=== PATIENT | female | born 1955 | race Caucasian/White ===

== ENCOUNTER → 2019-12-28 11:00 | Outpatient (BNVA) | payer OTHER, SELFPAY | PROVIDERS: Family Provider Nurse Practitioner; PCP Nurse Practitioner; Visit Provider Nurse Practitioner | DX: M25.50 Pain in unspecified joint (principal); Z11.59 Encounter for screening for other viral diseases; Z71.89 Other specified counseling | CPT/HCPCS: 87635 ==

== ENCOUNTER → 2020-01-08 09:52 | Outpatient (BNVA) | payer OTHER, SELFPAY | PROVIDERS: Family Provider Nurse Practitioner; PCP Nurse Practitioner; Visit Provider Nurse Practitioner | DX: Z00.00 Encounter for general adult medical examination without abnormal findings (principal); E55.9 Vitamin D deficiency, unspecified; M25.571 Pain in right ankle and joints of right foot | CPT/HCPCS: 73610; 80053; 80061; 81000; 82306; 82607; 83735; 84443; 85025; 85651 ==

== ENCOUNTER 2020-01-11 12:57 | Outpatient (CLI) | payer OTHER, SELFPAY ==
--- NOTE | 2020-01-12 06:58 | ONC FU_ITS ---
Dr. Crowe Patient Follow-Up Note Patient: Isabel Baird Unit #: [id number]: 1955 Dicatated By: Dajuan Crowe M.D.Date of Visit:Jan 11, 2020 Onc Med Follow-up/Prog Note Chief Complaint: Breast cancer. History of Present Illness: This is a 64 year-old woman with grade 3 invasive ductal carcinoma of the right breast, stage IIA (T2, N0, M0), ER/LA negative and HER-2/dallin positive. She had presented with an abnormal screening mammogram. The initial study, from 09/18/2016 was BI-RADS Category 0. It showed new scattered calcifications in the anterior right breast posterior to the nipple extending into the mid depth. Diagnostic mammogram with additional views on 09/26/2016 showed increase in size and number of calcifications compared to the prior study from 08/22/2015. The findings were felt to be suspicious enough to warrant biopsy, BI-RADS 4B. She then had further evaluation at the breast center in [place] with unilateral right mammogram and ultrasound on 10/11/2016. The mammogram showed numerous fine pleomorphic and some linear branching calcifications throughout the upper central right breast spanning an area of approximately 5.0 cm. These were noted to extend to the subareolar region. Ultrasound showed an irregular mass within the 12:00 axis of the right breast 3 cm from the nipple. It measured 1.4 x 0.9 x 0.7 cm. An adjacent irregular mass 2 cm from the nipple measured 0.8 x 0.6 x 0.5 cm. A third mass was present within the 1:00 axis of the right breast 2 cm from the nipple measuring 0.7 x 0.5 x 0.5 cm. She underwent ultrasound-guided biopsy of the 12:00 mass 3 cm from the nipple and of the 3:00 subareolar mass. Pathology on both lesions was consistent with grade 3 infiltrating ductal carcinoma. The breast prognostic profile on the 12:00 lesion showed ER negative at 0% and LA negative at 0%. HER-2/dallin was equivocal by IHC (2+). It was positive for overexpression of HER-2/dallin by FISH, amplification ratio 2.43 with 4.9 HER-2/dallin copies/cell. The Ki-67 was unfavorable at 53%. The 3:00 lesion was ER/LA negative, both 0%. HER-2/dallin was 2+ by IHC. It was reported negative by FISH with amplification ratio 1.19 and 3.6 HER-2/dallin copies/cell. The Ki-67 was unfavorable at 88%. She underwent right axillary sentinel lymph node biopsy on 11/01/2016. There was no involvement in 2 lymph nodes. She began neoadjuvant chemotherapy with TCH-P, cycle 1 day 1 on 11/14/2016. She tolerated her treatment without acute toxicity. However, she subsequently developed pretty severe bronchitis at about day 4. She was treated with inhaled bronchodilators and an antibiotic. At day 8 she became neutropenic, ANC 500. She recovered uneventfully with Neupogen. Her bronchitis eventually resolved. With cycle 2 she did receive Neulasta prophylactically, but it was omitted with the 3rd cycle because of leukocytosis. She then became neutropenic again, and she required treatment with Neupogen. She recovered uneventfully. After cycle 4, her chemotherapy was held due to severe diarrhea and worsening neuropathy. She was having lots of numbness and tingling in her hands and feet to the point that she was dropping things and she felt unsteady when she walked. She had residual tingling in her hands and feet after being held an extra week, but the pain and unsteadiness had essentially resolved. She completed cycle 5 with Herceptin and Perjeta only on 02/13/2017 and she completed cycle 6 on 03/06/2017. On 03/19/2017 she underwent bilateral mastectomy/reconstruction. Pathology showed focal involvement with nuclear grade 3 ductal carcinoma in situ in the superior half of the right breast. There was no invasive cancer identified. There were proliferative fibrocystic changes in both breasts. She then continued her treatment with Herceptin only at 3-week intervals with cycle 1 on 03/27/2017. She received cycle 11 of single agent Herceptin on 10/24/2017. At that point she had completed a full year of treatment, and she was then followed on observation/expectant management. Her other medical illnesses have been limited to mild asthma and hypothyroidism. She had previous left breast biopsies for benign disease in the 1970s and sometime in the . Her other previous surgeries include appendectomy in 1971 and hysterectomy/bilateral salpingo-oophorectomy. She is a nonsmoker. INTERIM HISTORY: She is seen for a scheduled visit. She has been feeling pretty good generally. Her main complaint is that her arthritis has flared up at multiple sites, including the ankles, hips, and hands, among others. She basically hurts all over. The pain is significant enough that she has trouble pushing herself up. She is taking meloxicam. Her energy is otherwise pretty good. Her ECOG score is 1. She has good appetite. She has no fever or night sweats. She has no shortness of breath, cough, or chest pain. She has no GI complaints other than occasional heartburn. Bladder function remains adequate. She does not complain of headache or dizziness. Her neuropathy symptoms have improved. She now has just occasional numbness in her feet. Medications: Albuterol Sulfate 1 Nebulization solution Inhalation four times a day PRN, Flonase Allergy Relief 2 spray(s) (of 50 mcg/act) Suspension Nasal daily, Levothroid 1 (137 mcg) Tablet Oral daily, Magnesium 1 Tablet (of 250 mg) Oral daily, Mucinex Allergy 1 (180 mg) Tablet Oral q 4 hours PRN, Singulair 1 (10 mg) Tablet Oral daily Allergies: Codeine Sulfate and Tetanus Immune Globulin. Review of Systems: Constitutional - Her energy is pretty good, but she does have limited activity. Appetite is good and weight is stable. No fever, night sweats, or hot flashes. ECOG score is 1, ENMT - No sinus congestion/drainage. No mouth sores. No sore throat or difficulty swallowing, Hematologic/Lymphatic - No abnormal bruising or bleeding, Respiratory - No shortness of breath. No cough. No pleuritic pain or hemoptysis, Cardiovascular - No angina pain. No palpitations, Gastrointestinal - No nausea or vomiting. She occasioanlly has heartburn. No diarrhea or constipation. No blood in the stool or black stools, Genitourinary (F) - No dysuria or hematuria. No urinary frequency. No urgency or incontinence, Musculoskeletal - She is having fairly generalized joint pain including the hands, hips, and ankles. She says she hurts all over. She has some weakness, and she has difficulty pushing up, Integumentary - No skin rash, Neurologic - No headache or dizziness. She has just occasional numbness/tingling in her feet. No other focal neurologic symptoms, Psychiatric - No anxiety or depression. No insomnia. Vital Signs: Performed on Jan 11, 2020 13:32 Height - 66.00 in Weight - 177.4 lbs (HIGH) BSA - 1.90 sq.m BMI - 28.63 Temperature - 97.8 F (LOW) Pulse - 74 /min Respiration - 16 /min BP - 127/77 mm(hg) O2 Sat - 100 % Pain - 1 Physical Examination: Constitutional - She looks good generally, Eyes - Sclerae nonicteric. Conjunctivae clear, ENMT - No lesions noted in the oral cavity, Hematologic/Lymphatic - No cervical or clavicular adenopathy, Respiratory - Lungs are clear with good air movement bilaterally, Cardiovascular - Heart rhythm is regular. There is no murmur, gallop, or rub noted, Breasts - There are no lesions noted in the chest wall/reconstruction bilaterally. There is no axillary adenopathy, Abdomen - Soft. Liver and spleen are not enlarged. There is no abdominal mass or ascites noted and there is no inguinal adenopathy, Extremities - No edema, Neurologic - No focal neurologic deficits noted. Lab/Imaging: CBC shows hemoglobin 12.6 g, white blood cell count 7500, and platelet count 285,000. Sed rate is mildly elevated at 35 mm/hour. Comprehensive metabolic profile is unremarkable. The alkaline phosphatase and other liver enzymes are normal. The 25-hydroxy vitamin D level is just slightly low at 29 ng/mL. TSH is normal at 1.17 ???IU/mL. Impression: 1. Patient with grade 3 infiltrating ductal carcinoma of the right breast, ER/LA negative and HER-2/dallin positive. There was uncertainty as to where this was multifocal disease versus more diffuse involvement with a larger primary lesion. The latter would appeared to be more likely, which would make her disease stage IIA (T2, N0, M0). 2. She underwent ultrasound-guided needle biopsy of 2 lesions in the right breast on 10/11/2016. She underwent right axillary sentinel lymph node biopsy on 11/01/2016. 3. She began neoadjuvant chemotherapy with TCH-P, cycle 1 day 1 on 11/14/2016. Her chemotherapy has been complicated by neutropenia, fatigue, diarrhea, and neuropathy. The neuropathy, in particular, had worsened significantly following the 4th cycle of treatment. With cycles 5 & 6 the carboplatin and Taxotere were omitted, and the treatment was limited to Herceptin and Perjeta alone. Treatment was completed on 03/06/2017. Her other medical illnesses include: 4. Mild asthma. 5. Hypothyroidism. On 03/19/2017 she underwent bilateral mastectomy/reconstruction by Drs. Healy and Siva in [place]. Pathology showed just focal residual ductal carcinoma in situ involving the superior half of the right breast. There was no residual invasive cancer identified. She then continued systemic therapy with Herceptin alone at 3-week intervals with cycle 1 on 03/27/2017. She received her 11th cycle of treatment with Herceptin on 10/24/2017. At that point she had completed a full year of treatment, and she was then followed on observation/expectant management. During subsequent follow-up she has been doing pretty well, though recently she has developed pretty significant joint pain. The presentation appears consistent with osteoarthritis. At this point it is really not suspicious for metastatic disease. She otherwise appears stable clinically. Plan: She continues on observation/expectant management for the breast cancer. She has regular follow-up scheduled with Dr. Healy in [place]. I will see her again in one year, or sooner as needed. Signed By: Dajuan Crowe M.D. <<Signature on File>>
== END 2020-01-11 12:58 | disposition home or self-care (01) ==
LOC: ONCMED 13:01
PROVIDERS: PCP Nurse Practitioner; Visit Provider Internal Medicine Medical Oncology
DX: Z08 Encounter for follow-up examination after completed treatment for malignant neoplasm (principal); Z85.3 Personal history of malignant neoplasm of breast; M25.50 Pain in unspecified joint; J45.909 Unspecified asthma, uncomplicated; E03.9 Hypothyroidism, unspecified; Z90.13 Acquired absence of bilateral breasts and nipples; Z92.21 Personal history of antineoplastic chemotherapy
CPT/HCPCS: G0463

== ENCOUNTER → 2020-12-26 13:52 | Outpatient (BNVA) | payer MEDICARE, BC, SELFPAY | PROVIDERS: PCP Nurse Practitioner; Visit Provider Nurse Practitioner | DX: E55.9 Vitamin D deficiency, unspecified (principal); Z11.59 Encounter for screening for other viral diseases; Z13.6 Encounter for screening for cardiovascular disorders; E03.9 Hypothyroidism, unspecified; Z78.0 Asymptomatic menopausal state; Z23 Encounter for immunization | CPT/HCPCS: 80053; 80061; 82306; 84443; 85025; 86803 ==

== ENCOUNTER 2021-01-11 08:53 | Outpatient (CLI) | payer MEDICARE, BC, SELFPAY ==
--- NOTE | 2021-01-11 10:17 | ONC FU_ITS ---
Dr. Crowe Patient Follow-Up Note Patient: Isabel Baird Unit #: [id number]: 1955 Dicatated By: Dajuan Crowe M.D.Date of Visit:Jan 11, 2021 Onc Med Follow-up/Prog Note Chief Complaint: Breast cancer. History of Present Illness: This is a 65 year-old woman with grade 3 invasive ductal carcinoma of the right breast, stage IIA (T2, N0, M0), ER/HI negative and HER-2/dallin positive. She had presented with an abnormal screening mammogram. The initial study, from 09/18/2016 was BI-RADS Category 0. It showed new scattered calcifications in the anterior right breast posterior to the nipple extending into the mid depth. Diagnostic mammogram with additional views on 09/26/2016 showed increase in size and number of calcifications compared to the prior study from 08/22/2015. The findings were felt to be suspicious enough to warrant biopsy, BI-RADS 4B. She then had further evaluation at the breast center in [place] with unilateral right mammogram and ultrasound on 10/11/2016. The mammogram showed numerous fine pleomorphic and some linear branching calcifications throughout the upper central right breast spanning an area of approximately 5.0 cm. These were noted to extend to the subareolar region. Ultrasound showed an irregular mass within the 12:00 axis of the right breast 3 cm from the nipple. It measured 1.4 x 0.9 x 0.7 cm. An adjacent irregular mass 2 cm from the nipple measured 0.8 x 0.6 x 0.5 cm. A third mass was present within the 1:00 axis of the right breast 2 cm from the nipple measuring 0.7 x 0.5 x 0.5 cm. She underwent ultrasound-guided biopsy of the 12:00 mass 3 cm from the nipple and of the 3:00 subareolar mass. Pathology on both lesions was consistent with grade 3 infiltrating ductal carcinoma. The breast prognostic profile on the 12:00 lesion showed ER negative at 0% and HI negative at 0%. HER-2/dallin was equivocal by IHC (2+). It was positive for overexpression of HER-2/dallin by FISH, amplification ratio 2.43 with 4.9 HER-2/dallin copies/cell. The Ki-67 was unfavorable at 53%. The 3:00 lesion was ER/HI negative, both 0%. HER-2/dallin was 2+ by IHC. It was reported negative by FISH with amplification ratio 1.19 and 3.6 HER-2/dallin copies/cell. The Ki-67 was unfavorable at 88%. She underwent right axillary sentinel lymph node biopsy on 11/01/2016. There was no involvement in 2 lymph nodes. She began neoadjuvant chemotherapy with TCH-P, cycle 1 day 1 on 11/14/2016. She tolerated her treatment without acute toxicity. However, she subsequently developed pretty severe bronchitis at about day 4. She was treated with inhaled bronchodilators and an antibiotic. At day 8 she became neutropenic, ANC 500. She recovered uneventfully with Neupogen. Her bronchitis eventually resolved. With cycle 2 she did receive Neulasta prophylactically, but it was omitted with the 3rd cycle because of leukocytosis. She then became neutropenic again, and she required treatment with Neupogen. She recovered uneventfully. After cycle 4, her chemotherapy was held due to severe diarrhea and worsening neuropathy. She was having lots of numbness and tingling in her hands and feet to the point that she was dropping things and she felt unsteady when she walked. She had residual tingling in her hands and feet after being held an extra week, but the pain and unsteadiness had essentially resolved. She completed cycle 5 with Herceptin and Perjeta only on 02/13/2017 and she completed cycle 6 on 03/06/2017. On 03/19/2017 she underwent bilateral mastectomy/reconstruction. Pathology showed focal involvement with nuclear grade 3 ductal carcinoma in situ in the superior half of the right breast. There was no invasive cancer identified. There were proliferative fibrocystic changes in both breasts. She then continued her treatment with Herceptin monotherapy at 3-week intervals with cycle 1 on 03/27/2017. She received cycle 11 of single agent Herceptin on 10/24/2017. At that point she had completed a full year of treatment, and she was then followed on observation/expectant management. Her other medical illnesses have been limited to mild asthma, hypothyroidism, and hyperlipidemia. She had previous left breast biopsies for benign disease in the 1970s and sometime in the . Her other previous surgeries include appendectomy in 1971 and hysterectomy/bilateral salpingo-oophorectomy. She is a nonsmoker. She is seen for a scheduled visit. She has been feeling good generally. She has good energy and activity tolerance. ECOG score is 0. Her appetite is good. She has not had fever. She has just occasional hot flashes/sweating. She has no shortness of breath, cough, or chest pain. She has some acid reflux off and on, managed adequately with [id number] medication taken as needed. She has no other GI or complaints. She has joint pain, mainly in the hips and shoulders. She is managing with combination of meloxicam and chondroitin sulfate/glucosamine. She does not complain of headache or dizziness. She still has some residual neuropathy in her feet. Medications: Albuterol Sulfate 1 Nebulization solution Inhalation four times a day PRN, Flonase Allergy Relief 2 spray(s) (of 50 mcg/act) Suspension Nasal daily, Levothroid 1 (137 mcg) Tablet Oral daily, Magnesium 1 Tablet (of 250 mg) Oral daily, Mucinex Allergy 1 (180 mg) Tablet Oral q 4 hours PRN, Singulair 1 (10 mg) Tablet Oral daily Allergies: Codeine Sulfate and Tetanus Immune Globulin. Vital Signs: Her weight is 173 pounds. Blood pressure 146/88, pulse 67, respirations 18, temp 99.0 degrees. Oxygen saturation is 98%. Physical Examination: Constitutional - She looks good generally, Eyes - Sclerae nonicteric. Conjunctivae clear, ENMT - No lesions noted in the oral cavity, Hematologic/Lymphatic - No cervical or clavicular adenopathy, Respiratory - Lungs are clear with good air movement bilaterally, Cardiovascular - Heart rhythm is regular. There is no murmur, gallop, or rub noted, Breasts - There are no lesions noted in the chest wall/reconstruction bilaterally. There is no axillary adenopathy, Abdomen - Soft. Liver and spleen are not enlarged. There is no abdominal mass or ascites noted and there is no inguinal adenopathy, Extremities - No edema, Neurologic - No focal neurologic deficits noted. Lab/Imaging: Test performed on Dec 26, 2020 13:52 TSH 4.86 uU/mL Cholesterol, Total 245 mg/dL Glucose 91 mg/dL Vitamin D (25-Hydroxy) 32 ng/mL BUN 17 mg/dL HDL Cholesterol 57 mg/dL Creatinine 0.7 mg/dL LDL Cholesterol 146 mg/dL Cr Clearance (Est) 95.82 mL/min VLDL Cholesterol 42 mg/dL Triglycerides 212 mg/dL Sodium 140 mmol/L Potassium 4.3 mmol/L Chloride 105 mmol/L CO2 25 mmol/L Calcium 8.8 mg/dL Protein, Total 6.3 g/dL Albumin 4.4 g/dL Globulin 1.9 g/dL Bilirubin, Total 0.5 mg/dL Alkaline Phosphatase 59 IU/L AST (SGOT) 14 IU/L ALT (SGPT) 11 IU/L WBC 7.0 10^9/L RBC 4.15 10^12/L HGB 12.3 g/dL HCT 37.9 % MCV 91.3 fl MCH 29.6 pg MCHC 32.5 g/dL RDW 13.4 % Platelet Count 245 10^9/L MPV 11.9 fL Neutrophils (Gran) 4.19 10^9/L Lymphocytes 1.9 10^9/L Monocytes 0.6 10^9/L Eosinophils 0.2 10^9/L Basophils 0.1 10^9/L Manual Lymphocytes 27.2 % Manual Monocytes 8.6 % Manual Eosinophils 2.3 % Problem List: 1. Grade 3 infiltrating ductal carcinoma of the right breast, ER/HI negative and HER-2/dallin positive. There was uncertainty as to where this was multifocal disease versus more diffuse involvement with a larger primary lesion. The latter appeared to be the more likely, consistent with stage IIA (T2, N0, M0) disease. 2. Mild asthma. 3. Hypothyroidism. 4. Hyperlipidemia. Problems Addressed with this Encounter and Plan: Patient with grade 3 infiltrating ductal carcinoma of the right breast, ER/HI negative and HER-2/dallin positive. By clinical evaluation, her disease appeared to be stage IIA (T2, N0, M0). She underwent ultrasound-guided needle biopsy of 2 lesions in the right breast on 10/11/2016. She underwent right axillary sentinel lymph node biopsy on 11/01/2016. She began neoadjuvant chemotherapy with TCH-P, cycle 1 day 1 on 11/14/2016. Her chemotherapy has been complicated by neutropenia, fatigue, diarrhea, and neuropathy. The neuropathy, in particular, had worsened significantly following the 4th cycle of treatment. With cycles 5 & 6 the carboplatin and Taxotere were omitted, and the treatment was limited to Herceptin and Perjeta alone. Treatment was completed on 03/06/2017. On 03/19/2017 she underwent bilateral mastectomy/reconstruction by Drs. Healy and Siva in [place]. Pathology showed just focal residual ductal carcinoma in situ involving the superior half of the right breast. There was no residual invasive cancer identified. She then continued systemic therapy with Herceptin monotherapy at 3-week intervals with cycle 1 on 03/27/2017. She received her 11th cycle of treatment with Herceptin on 10/24/2017. At that point she had completed a full year of treatment, and she was then followed on observation/expectant management. During follow-up she has been doing well clinically. Thus far there has been no evidence of recurrence of her breast cancer. She continues on expectant management. I will see her again in 1 year. Signed By: Dajuan Crowe M.D. <<Signature on File>>
== END 2021-01-11 08:54 | disposition home or self-care (01) ==
LOC: ONCMED 09:08
PROVIDERS: PCP Nurse Practitioner; Visit Provider Internal Medicine Medical Oncology
DX: Z08 Encounter for follow-up examination after completed treatment for malignant neoplasm (principal); Z85.3 Personal history of malignant neoplasm of breast; J45.20 Mild intermittent asthma, uncomplicated; E03.9 Hypothyroidism, unspecified; E78.5 Hyperlipidemia, unspecified; Z92.21 Personal history of antineoplastic chemotherapy
CPT/HCPCS: G0463

== ENCOUNTER 2021-02-16 10:26 | Outpatient (CLI) | payer MEDICARE, BC, SELFPAY ==
--- NOTE | 2021-02-16 10:15 | USCV_ITS ---
Isabel Baird Age: 65 Gender: F : 1955 Exam Date: 02/16/2021 11:07 Ordering Phys: Lia Bolaños Technologist: [place] [facility] [place]CREENING HISTORY: Diameter (cm) AP x Transverse x Length Velocity (cm/s) Waveform Prox Aorta: 2.63 x 2.54 x 92.90 Triphasic Mid Aorta: 1.96 x 2.05 x 83.20 Triphasic Distal Aorta: 1.69 x 2.07 x 95.10 Triphasic Right Iliac Prox: 1.10 x 1.36 x 117.30 Triphasic Left Iliac Prox: 1.44 x 1.36 x 107.80 Triphasic Stent Prox Landing x x Aneurysmal Sac Max x x Lt Lat Sac Dim Rt Lat Sac Dim Stent Dist Landing x x Right Iliac Stent x x Left Iliac Stent x x Right Renal Art Left Renal Art FINDINGS: Comparison: none available. Ectatic abdominal aorta with evidence of atherosclerotic plaque noted. No evidence of abdominal aortic aneurysm. There is no evidence of a right common iliac artery aneurysm. There is no evidence of a left common iliac artery aneurysm. CONCLUSIONS No evidence of abdominal aortic or bilateral iliac aneurysm. Dr. Xochilt Weston DO (Electronically Signed) Final Date: 16 February 2021 14:59 S
--- NOTE | 2021-02-16 11:00 | XR_ITS ---
WS: [id number] CHEST 2 VIEWS HISTORY: Z13.6 - Encounter for screening for cardiovascular disorders COMPARISON: 08/01/2009 Lungs: Clear with no abnormality. No pleural effusion or pneumothorax. Cardiac size: Normal. Mediastinum/Aorta: Normal mediastinum. Bones: Normal. XR/XR chest 2V* [id number] IMPRESSION: Normal chest.
--- NOTE | 2021-02-16 12:23 | XR_ITS ---
WS: [id number] SCREENING DEXA SCAN [employer] CLINICAL INFORMATION: Z78.0 - Asymptomatic menopausal state COMPARISON: None. FINDINGS: The L1-L4 bone mineral density measures 0.995 g/cm2. This corresponds to a T score score of -1.5 and Z score of -0.4. Left femoral neck bone mineral density measures 0.887 g/cm2. This corresponds to a T score of -1.0 an d Z score of -0.1. Right femoral neck bone mineral density measures 0.855 g/cm2. This corresponds to a T score -1.2of an d Z score of -0.3. Mean femoral neck bone mineral density measures 0.871 g/cm2. This corresponds to a T score of -1.1 an d Z score of -0.2. XR/XR DEXA axial skeleton* [id number] IMPRESSION: Osteopenia Patient's FRAX calculated 10 year probability for major osteoporotic fracture i s 15.9 % and osteoporotic hip fracture is 0.8%.
== END 2021-02-16 10:27 | disposition home or self-care (01) ==
PROVIDERS: PCP Nurse Practitioner; Visit Provider Nurse Practitioner
DX: Z13.6 Encounter for screening for cardiovascular disorders (principal); Z78.0 Asymptomatic menopausal state; M85.88 Other specified disorders of bone density and structure, other site
CPT/HCPCS: 71046; 76706; 77080

== ENCOUNTER → 2021-03-22 09:13 | Outpatient (BNVA) | payer MEDICARE, BC, SELFPAY | PROVIDERS: PCP Nurse Practitioner; Visit Provider Nurse Practitioner | DX: E03.9 Hypothyroidism, unspecified (principal) | CPT/HCPCS: 84443 ==

== ENCOUNTER → 2021-09-12 14:32 | Outpatient (BNVA) | payer MEDICARE, BC, SELFPAY | PROVIDERS: PCP Nurse Practitioner; Visit Provider Nurse Practitioner | DX: M25.562 Pain in left knee (principal) | CPT/HCPCS: 73562; 80053; 82306; 84443 ==

== ENCOUNTER 2021-09-28 11:49 | Outpatient (CLI) | payer MEDICARE, BC, SELFPAY ==
--- NOTE | 2021-09-28 11:00 | CTR_ITS ---
PROCEDURE INFORMATION: Exam: CT Abdomen And Pelvis Without Contrast Exam date and time: 09/28/2021 1:15 PM Age: 66 years old Clinical indication: Abdominal pain; Localized; Left lower quadrant (llq); Additional info: R10.32 - left lower quadrant pain TECHNIQUE: Imaging protocol: Computed tomography of the abdomen and pelvis without contrast. Radiation optimization: All CT scans at this facility use at least one of these dose optimization techniques: automated exposure control; mA and/or kV adjustment per patient size (includes targeted exams where dose is matched to clinical indication); or iterative reconstruction. COMPARISON: CT abdomen pelvis w con* [id number] 02/19/2018 10:01 AM RADIATION DOSE METRICS: Total DLP (mGy-cm): 1081.69 FINDINGS: Liver: Normal. No mass. Gallbladder and bile ducts: Normal. No calcified stones. No ductal dilation. Pancreas: Normal. No ductal dilation. Spleen: Normal. No splenomegaly. Adrenal glands: Normal. No mass. Kidneys and ureters: Right kidney punctate nonobstructive calyceal stone. Stomach and bowel: Constipation. Mild edema in wall thickening of the sigmoid colon in the area of several diverticuli with a trace amount of nonlocalized free fluid consistent with diverticulitis. Appendix: No evidence of appendicitis. Intraperitoneal space: Unremarkable. No free air. No significant fluid collection. Vasculature: Unremarkable. No abdominal aortic aneurysm. Lymph nodes: Unremarkable. No enlarged lymph nodes. Urinary bladder: Unremarkable as visualized. Reproductive: Unremarkable as visualized. Bones/joints: Unremarkable. No acute fracture. Soft tissues: Unremarkable. CT/CT abdomen pelvis con [id number] IMPRESSION: 1. Sigmoid colon diverticulitis, negative for abscess. 2. Right kidney punctate nonobstructive calyceal stone. 3. Constipation.
[2021-09-28] MEDS: iohexol 300 mg/mL 50 mL Btl PO (12:05)
== END 2021-09-28 11:50 | disposition home or self-care (01) ==
PROVIDERS: PCP Nurse Practitioner; Visit Provider Nurse Practitioner
DX: K57.32 Diverticulitis of large intestine without perforation or abscess without bleeding (principal); K59.00 Constipation, unspecified; N20.0 Calculus of kidney
CPT/HCPCS: 74176; 80053; 81000; 85025

== ENCOUNTER 2022-02-05 14:14 | Oncology outpatient (recurring) (ONCR) | payer MEDICARE, BC, SELFPAY | END 2022-02-11 23:59 | disposition home or self-care (01) | PROVIDERS: PCP Nurse Practitioner; Visit Provider Internal Medicine Medical Oncology | DX: Z08 Encounter for follow-up examination after completed treatment for malignant neoplasm (principal); Z85.3 Personal history of malignant neoplasm of breast; Z90.13 Acquired absence of bilateral breasts and nipples; Z92.21 Personal history of antineoplastic chemotherapy | CPT/HCPCS: G0463 ==

== ENCOUNTER 2022-04-16 12:56 | Outpatient (CLI) | payer MEDICARE, BC, SELFPAY ==
--- NOTE | 2022-04-16 13:45 | MR_ITS ---
WS: [id number] MRI LEFT KNEE HISTORY: Pain beneath patella and posterior knee for 2 months. COMPARISON: Radiograph 09/12/2021 Anterior cruciate ligament: Intact. Posterior cruciate ligament: Intact. Medial collateral ligament: Small amount of fluid adjacent to the MCL but no tear. Posterior lateral corner structures: Intact. Medial menisci: Horizontal tear in the posterior horn. Horizontal tear extends to the inferior articu lar surface and is involving the posterior meniscus. There is additional very mild blunting of the fr ee edges of the meniscus. Seen best on the coronal projection is increased signal within the meniscus suspicious for a radial tear. Lateral meniscus: Intact. Normal signal, size and shape. Extensor mechanism: Distal quadriceps tendon and patellar tendons are intact. Fluid and soft tissue: Small suprapatellar joint effusion. No Arizmendi's cyst. Osseous and articular structures: Patellofemoral compartment: Moderate narrowing patellofemoral compartment, greatest involving the lat eral facet joint. Diffuse loss of cartilage throughout the patella with increased subchondral cystic changes and bone fissuring along the lateral facet. Medial compartment: Mild narrowing of the medial compartment. Mild thinning of the cartilage and fiss uring. No fracture or marrow edema. Lateral compartment: Mild narrowing with superficial fissuring of the cartilage. No marrow edema. Varicosities surrounding the knee. MR/MR knee LT wo con* [id number] IMPRESSION: 1. 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 Great est involvement of the chondromalacia along the lateral patellar facet with und erlying subchondral edema. 2. Mild narrowing of the medial and lateral compartments with mild degenerativ e changes and chondromalacia. 3. Horizontal tear posterior horn medial meniscus. Additional mild blunting in volving the free edges of the anterior and posterior horns of the medial menisc us. Suspect there may be a radial tear involving menisci towards the free edges . 4. Small joint effusion. 5. Mild MCL sprain.
== END 2022-04-16 12:57 | disposition home or self-care (01) ==
LOC: RAD 12:58
PROVIDERS: PCP Nurse Practitioner; Visit Provider Nurse Practitioner
DX: M17.12 Unilateral primary osteoarthritis, left knee (principal); M22.42 Chondromalacia patellae, left knee; S83.242A Other tear of medial meniscus, current injury, left knee, initial encounter; S83.412A Sprain of medial collateral ligament of left knee, initial encounter; X58.XXXA Exposure to other specified factors, initial encounter; M25.462 Effusion, left knee
CPT/HCPCS: 73721

== ENCOUNTER 2022-04-24 06:00 | Outpatient (RCR) | payer MEDICARE, BC, SELFPAY | END 2022-05-14 23:59 | disposition home or self-care (01) | LOC: TPT 06:00 | PROVIDERS: PCP Nurse Practitioner; Visit Provider Nurse Practitioner | DX: M25.562 Pain in left knee (principal); M79.662 Pain in left lower leg | CPT/HCPCS: 97110; 97162 ==

== ENCOUNTER 2022-05-15 06:00 | Outpatient (RCR) | payer MEDICARE, BC, SELFPAY | END 2022-06-13 23:59 | disposition home or self-care (01) | LOC: TPT 06:00 | PROVIDERS: PCP Nurse Practitioner; Visit Provider Nurse Practitioner | DX: M25.562 Pain in left knee (principal) | CPT/HCPCS: 97110 ==

== ENCOUNTER 2022-06-29 06:00 | Outpatient (RCR) | payer MEDICARE, BC, SELFPAY | END 2022-07-14 23:59 | disposition home or self-care (01) | LOC: TPT 06:00 | PROVIDERS: PCP Nurse Practitioner; Visit Provider Orthopaedic Surgery | DX: Z47.89 Encounter for other orthopedic aftercare (principal) | CPT/HCPCS: 97110; 97162 ==

== ENCOUNTER 2022-07-15 06:00 | Outpatient (RCR) | payer MEDICARE, BC, SELFPAY | END 2022-07-27 23:59 | disposition home or self-care (01) | LOC: TPT 06:00 | PROVIDERS: PCP Nurse Practitioner; Visit Provider Orthopaedic Surgery | DX: Z47.89 Encounter for other orthopedic aftercare (principal) | CPT/HCPCS: 97110; 97164 ==

== ENCOUNTER → 2022-12-03 12:27 | Outpatient (BNVA) | payer MEDICARE, BC, SELFPAY | PROVIDERS: PCP Nurse Practitioner; Visit Provider Nurse Practitioner | DX: E03.9 Hypothyroidism, unspecified (principal); Z13.6 Encounter for screening for cardiovascular disorders | CPT/HCPCS: 80053; 80061; 84443 ==

== ENCOUNTER → 2023-05-27 11:08 | Outpatient (BNVA) | payer MEDICARE, BC, SELFPAY | PROVIDERS: PCP Nurse Practitioner; Visit Provider Nurse Practitioner | DX: E03.9 Hypothyroidism, unspecified (principal); E55.9 Vitamin D deficiency, unspecified; Z13.6 Encounter for screening for cardiovascular disorders | CPT/HCPCS: 80053; 80061; 82306; 84443 ==

== ENCOUNTER → 2023-11-11 11:51 | Outpatient (BNVA) | payer MEDICARE, BC, SELFPAY | PROVIDERS: PCP Nurse Practitioner; Visit Provider Nurse Practitioner | DX: E78.2 Mixed hyperlipidemia (principal); E03.9 Hypothyroidism, unspecified | CPT/HCPCS: 80053; 80061; 84443 ==

== ENCOUNTER → 2024-04-27 12:01 | Outpatient (BNVA) | payer MEDICARE, BC, SELFPAY | PROVIDERS: PCP Nurse Practitioner; Visit Provider Nurse Practitioner | DX: J30.1 Allergic rhinitis due to pollen (principal); E78.2 Mixed hyperlipidemia; E03.9 Hypothyroidism, unspecified; E55.9 Vitamin D deficiency, unspecified; M25.571 Pain in right ankle and joints of right foot | CPT/HCPCS: 80053; 80061; 82607; 84443; 85025; 85651; 86140; 86431 ==

== ENCOUNTER → 2024-10-06 12:30 | Outpatient (BNVA) | payer MEDICARE, BC, SELFPAY | PROVIDERS: PCP Nurse Practitioner; Visit Provider Nurse Practitioner | DX: E78.2 Mixed hyperlipidemia (principal); E55.9 Vitamin D deficiency, unspecified; E03.9 Hypothyroidism, unspecified | CPT/HCPCS: 80053; 80061; 82306; 84443 ==

== ENCOUNTER → 2025-01-07 10:10 | Outpatient (BNVA) | payer MEDICARE, BC, SELFPAY | PROVIDERS: PCP Nurse Practitioner; Visit Provider Nurse Practitioner | DX: M25.551 Pain in right hip (principal) | CPT/HCPCS: 73502 ==

== ENCOUNTER → 2025-04-08 10:50 | Outpatient (BNVA) | payer MEDICARE, BC, SELFPAY | PROVIDERS: PCP Nurse Practitioner; Visit Provider Nurse Practitioner | DX: E78.2 Mixed hyperlipidemia (principal); E03.9 Hypothyroidism, unspecified | CPT/HCPCS: 80053; 80061; 84443 ==